=== PATIENT | male | born 1990 | race Caucasian/White ===

== ENCOUNTER 2023-11-11 20:04 | Inpatient (IN) | payer BC ==
[~2023-11-11] VITALS: Ht 177.8 cm; Wt 90.7 kg
[2023-11-11] MEDS: IV NS 0.9% 1,000 ML BAG IV ONE (20:30)
[2023-11-11] MEDS ORDERED: MORPHINE SULFATE INJ 2 MG/ML DISP.SYRIN ONE (20:32)
[2023-11-11] MEDS ORDERED: ONDANSETRON HCL/PF 4 MG/2 ML VIAL ONE (20:32)
[2023-11-11] MEDS: ONDANSETRON HCL/PF 4 MG/2 ML VIAL IVP ONE (20:37)
[2023-11-11] MEDS: MORPHINE SULFATE INJ 2 MG/ML DISP.SYRIN IV ONE ×3 (20:37→23:28)
[2023-11-11 20:39] LABS: BASOPHILS # (AUTO) 0.1 K/uL (0.0-0.2); BASOPHILS % (AUTO) 0.7 % (0.0-2.0); EOSINOPHILS % (AUTO) 0.4 % (0.0-6.0); HEMATOCRIT 40 % (39-51); HEMOGLOBIN 13.8 g/dL (13.5-17.5); LYMPHOCYTES # (AUTO) 1.1 K/uL (0.8-4.8); LYMPHOCYTES % (AUTO) 9.5 % (20.0-44.0); MEAN CORPUSCULAR HEMOGLOBIN 31 PG (26.0-33.0); MEAN CORPUSCULAR HGB CONC 35 g/dl (31.0-36.0); MEAN CORPUSCULAR VOLUME 90 fL (80-96); MONOCYTES % (AUTO) 8.2 % (2.0-12.0); NEUTROPHILS # (AUTO) 9.4 K/uL (1.8-8.9); NEUTROPHILS % (AUTO) 81.2 % (43.0-81.0); PLATELET COUNT (AUTO) 203 K/uL (150-450); RED BLOOD CELL COUNT(AUTO) 4.47 MIL/uL (4.5-6.0); RED CELL DISTRIBUTION WIDTH 13.8 % (11.5-15.0); WHITE BLOOD COUNT (AUTO) 11.6 K/uL (4.3-11.0)
[2023-11-11 20:46] LABS: CALCIUM, SERUM 9.5 mg/dL (8.5-10.1); POTASSIUM 3.6 mmol/L (3.5-5.1)
[2023-11-11 20:52] LABS: ALBUMIN 3.9 g/dL (3.4-5.0); BILIRUBIN,DIRECT 0.1 mg/dL (0.0-0.2); BILIRUBIN,TOTAL 0.5 mg/dL (0.2-1.0); TOTAL PROTEIN, SERUM 7.6 g/dL (6.4-8.2)
[2023-11-11 21:07] LABS: APPEARANCE,URINE CLEAR (CLEAR); BILIRUBIN,URINE NEGATIVE (NEGATIVE); BLOOD, URINE NEGATIVE Ery/uL (NEGATIVE); COLOR,URINE YELLOW (YELLOW); KETONES,URINE TRACE mg/dL (NEGATIVE); LEUKOCYTE ESTERASE ,URINE NEGATIVE (NEGATIVE); NITRITE, URINE NEGATIVE (NEGATIVE); PROTEIN,URINE NEGATIVE (NEGATIVE); UGLUCOSE NEGATIVE (NEGATIVE)
[2023-11-11 21:26] LABS: ADD URINE CULTURE NO; BACTERIA,URINE None seen /HPF (None Seen); MUCUS,URINE Few /LPF (None Seen); RBC,URINE 0-2 /HPF (0-2); SQUAMOUS EPITHELIAL CELL,UR 0-2 /HPF (None Seen); WBC,URINE 0-2 /HPF (0-3)
[2023-11-11 21:28] VITALS: O2SAT 99
[2023-11-11] MEDS ORDERED: ONDANSETRON HCL/PF 4 MG/2 ML VIAL IVP PRN (22:00)
[2023-11-11] MEDS ORDERED: MORPHINE SULFATE INJ 2 MG/ML DISP.SYRIN IV PRN (22:00)
[2023-11-11] MEDS ORDERED: ACETAMINOPHEN 325 MG TABLET PO PRN (22:00)
[2023-11-11] MEDS: PIPERACILLIN /TAZOBACTAM 3.375 G in IV D5W 50 ML IV ONE (22:01)
[2023-11-11] MEDS: PIPERACI/TAZO 3.375GM/D5W 50ML PB IV ONE (22:01)
[2023-11-11 22:15] LABS: INR 1.02 (0.91-1.10); PARTIAL THROMBOPLASTIN TIME 25.8 SEC (24.3-34.3); PROTHROMBIN TIME 10.8 SECS (9.2-11.1)
[2023-11-11 22:25] VITALS: BP 141/86; TEMP 99.5; O2SAT 98
[2023-11-11] MEDS: IV NS 0.9% 1,000 ML IV SCH (22:51)
[2023-11-11] MEDS: HYDROMORPHONE 1 MG/1 ML DISP.SYRIN IV PRN (23:27)
[2023-11-12] MEDS: PIPERACILLIN /TAZOBACTAM 3.375 G in IV D5W 50 ML IV ONE (05:47)
[2023-11-12 06:50] LABS: BASOPHILS % (AUTO) 0.2 % (0.0-2.0); EOSINOPHILS # (AUTO) 0.1 K/uL (0.0-0.7); EOSINOPHILS % (AUTO) 0.6 % (0.0-6.0); HEMATOCRIT 37 % (39-51); HEMOGLOBIN 12.9 g/dL (13.5-17.5); LYMPHOCYTES # (AUTO) 1.6 K/uL (0.8-4.8); LYMPHOCYTES % (AUTO) 14.3 % (20.0-44.0); MEAN CORPUSCULAR HEMOGLOBIN 32 PG (26.0-33.0); MEAN CORPUSCULAR HGB CONC 35 g/dl (31.0-36.0); MEAN CORPUSCULAR VOLUME 91 fL (80-96); MONOCYTES # (AUTO) 1.1 K/uL (0.1-1.30); MONOCYTES % (AUTO) 10.1 % (2.0-12.0); NEUTROPHILS # (AUTO) 8.2 K/uL (1.8-8.9); NEUTROPHILS % (AUTO) 74.8 % (43.0-81.0); PLATELET COUNT (AUTO) 187 K/uL (150-450); RED CELL DISTRIBUTION WIDTH 13.5 % (11.5-15.0); WHITE BLOOD COUNT (AUTO) 10.9 K/uL (4.3-11.0)
[2023-11-12 07:03] LABS: INR 1.07 (0.91-1.10); PARTIAL THROMBOPLASTIN TIME 28.3 SEC (24.3-34.3); PROTHROMBIN TIME 11.3 SECS (9.2-11.1)
[2023-11-12 07:04] LABS: CALCIUM, SERUM 8.5 mg/dL (8.5-10.1); CREATININE 0.8 mg/dL (0.6-1.3); PHOSPHORUS 3.9 mg/dL (2.5-4.9); POTASSIUM 4.2 mmol/L (3.5-5.1)
[2023-11-12] MEDS ORDERED: Sudafed PO (07:36)
[2023-11-12] MEDS: PIPERACI/TAZO 3.375GM/D5W 50ML PB IV ONE (07:54)
[2023-11-12 08:00] VITALS: BP 121/74; TEMP 98.6; O2SAT 97
[2023-11-12] MEDS ORDERED: ANESTHESIA TRAY IN PYXIS 1 EA TRAY MC ONE (09:55)
[2023-11-12] MEDS ORDERED: BUPIVACAINE MPF 0.5% W/EPI INJ 30 ML VIAL ONE (09:56)
[2023-11-12] MEDS ORDERED: LIDOCAINE 1% INJ 50 ML MDV IJ ONE (09:56)
[2023-11-12] MEDS ORDERED: FENTANYL PF 100MCG/2ML AMPUL ONE (10:08)
[2023-11-12] MEDS ORDERED: HYDROMORPHONE INJ 2 MG/ML DISP.SYRIN ONE (10:08)
[2023-11-12] MEDS ORDERED: MIDAZOLAM HCL 2 MG/2ML VIAL ONE (10:09)
[2023-11-12] MEDS ORDERED: ROCURONIUM BROMIDE 50 MG/5 ML ONE (10:11)
[2023-11-12] MEDS ORDERED: MENTHOL/CETYLPYRD (CEPACOL) 1 LOZ LOZENGE PO PRN (11:30)
[2023-11-12] MEDS ORDERED: ACETAMINOPHEN 325 MG TABLET PO PRN (11:30)
[2023-11-12] MEDS: PIPERACILLIN /TAZOBACTAM 3.375 G in IV D5W 50 ML IV SCH (12:25)
[2023-11-12] MEDS: GABAPENTIN 100 MG CAPSULE PO SCH (12:27)
[2023-11-12 16:00] VITALS: BP 120/73; TEMP 98.2; O2SAT 93
[2023-11-12 20:00] VITALS: BP 131/72; TEMP 98.2; O2SAT 98
[2023-11-12] MEDS: HYDROCODONE/APAP 5/325MG TABLET PO PRN (21:48)
[2023-11-13 06:53] LABS: BASOPHILS % (AUTO) 0.1 % (0.0-2.0); EOSINOPHILS % (AUTO) 0.2 % (0.0-6.0); HEMATOCRIT 36 % (39-51); HEMOGLOBIN 12.5 g/dL (13.5-17.5); LYMPHOCYTES # (AUTO) 1.1 K/uL (0.8-4.8); LYMPHOCYTES % (AUTO) 12.2 % (20.0-44.0); MEAN CORPUSCULAR HEMOGLOBIN 31 PG (26.0-33.0); MEAN CORPUSCULAR HGB CONC 35 g/dl (31.0-36.0); MEAN CORPUSCULAR VOLUME 91 fL (80-96); MONOCYTES # (AUTO) 0.7 K/uL (0.1-1.30); MONOCYTES % (AUTO) 7.6 % (2.0-12.0); NEUTROPHILS # (AUTO) 7.4 K/uL (1.8-8.9); NEUTROPHILS % (AUTO) 79.9 % (43.0-81.0); PLATELET COUNT (AUTO) 192 K/uL (150-450); RED CELL DISTRIBUTION WIDTH 13.7 % (11.5-15.0); WHITE BLOOD COUNT (AUTO) 9.2 K/uL (4.3-11.0)
[2023-11-13 07:30] VITALS: BP 122/78; TEMP 97.7; O2SAT 99
[2023-11-13 07:47] LABS: CALCIUM, SERUM 9.1 mg/dL (8.5-10.1); CREATININE 0.7 mg/dL (0.6-1.3); MAGNESIUM 2.6 mg/dL (1.8-2.4); POTASSIUM 4.6 mmol/L (3.5-5.1)
[2023-11-13] MEDS ORDERED: GABA100C PO (10:19)
[2023-11-13] MEDS: IV NS 0.9% 1,000 ML IV PRN (11:18)
[2023-11-13] MEDS: PIPERACILLIN /TAZOBACTAM 3.375 G in IV D5W 100 ML IV SCH (12:02)
[2023-11-13 16:00] VITALS: BP 127/85; TEMP 98.3; O2SAT 94
[2023-11-13 20:00] VITALS: BP 128/83; TEMP 97.6; O2SAT 98
[2023-11-13] MEDS ORDERED: diphenhydrAMINE HCL 25 MG CAPSULE PO ONE (20:00)
[2023-11-13] MEDS: TEMAZEPAM 7.5 MG CAPSULE PO ONE (22:33)
[2023-11-14 07:30] VITALS: BP 125/74; TEMP 97.8; O2SAT 97
[2023-11-14] MEDS ORDERED: POLYETHYLENE GLYCOL 3350 17 GM POWD.PACK PO PRN (11:00)
[2023-11-14] MEDS: GABAPENTIN 100 MG CAPSULE PO SCH (13:03)
[2023-11-14] MEDS ORDERED: GABA300C PO (13:31)
[2023-11-14] MEDS ORDERED: HYDR-3980 PO (13:31)
[2023-11-14] MEDS ORDERED: POLY17PO4 PO (13:31)
[2023-11-14] MEDS ORDERED: AMOX-430 PO (13:31)
[2023-11-14] MEDS ORDERED: HYDROCODONE/APAP 10/325MG TABLET PO PRN (16:00)
== END 2023-11-14 15:00 | disposition home or self-care (01) | DRG 399 ==
LOC: ER 20:12 → MED 22:06
PROVIDERS: ATTEND Nurse Practitioner Acute Care
PROC: 0DTJ4ZZ Resection of Appendix, Percutaneous Endoscopic Approach (ICD-10-PCS; principal; 2023-11-12)
DX: K35.32 Acute appendicitis with perforation, localized peritonitis, and gangrene, without abscess (principal); D64.9 Anemia, unspecified; D72.829 Elevated white blood cell count, unspecified; K38.1 Appendicular concretions
CPT/HCPCS: 36415; 80048-TC; 80076-TC; 81001; 83690-TC; 83735-TC; 84100-TC; 85025-TC; 85730-TC; 86850-TC; 87086-TC; A4223; G0378; J0690; J1100; J1170; J2250; J2270; J2405; J2543; J2704; J3010; J3490; J7030; J7060